=== PATIENT | male | born 1945 | race Caucasian/White ===

== ENCOUNTER → 2016-11-02 | Outpatient (CLI) | payer OTHER, BC | LOC: FIMAGING 12:43 | PROVIDERS: ATTEND Internal Medicine Pulmonary Disease | DX: J98.6 Disorders of diaphragm (principal); J45.909 Unspecified asthma, uncomplicated; J15.9 Unspecified bacterial pneumonia; I25.10 Atherosclerotic heart disease of native coronary artery without angina pectoris ==

== ENCOUNTER → 2018-01-14 | Outpatient (CLI) | payer OTHER, BC | LOC: FIMAGING 12:59 | PROVIDERS: ATTEND Family Medicine | DX: M25.552 Pain in left hip (principal); M16.0 Bilateral primary osteoarthritis of hip ==

== ENCOUNTER → 2018-02-28 | Outpatient (CLI) | payer OTHER, BC | LOC: FIMAGING 19:06 | PROVIDERS: ATTEND Family Medicine | DX: M16.0 Bilateral primary osteoarthritis of hip (principal); M25.852 Other specified joint disorders, left hip; M24.152 Other articular cartilage disorders, left hip; M76.891 Other specified enthesopathies of right lower limb, excluding foot; M76.892 Other specified enthesopathies of left lower limb, excluding foot ==

== ENCOUNTER 2018-06-04 05:17 | Inpatient (IN) | payer OTHER, BC ==
[2018-06-04] MEDS ORDERED: TRANEXAMIC ACID 1,000 MG in NS 100 ML IV ONE (06:00)
[2018-06-04] MEDS ORDERED: TRANEXAMIC ACID 3,000 MG in NS (SYRINGE) 50 ML IRR ONE (06:00)
[2018-06-04] MEDS ORDERED: ROPIVACAINE 0.2% 80 MG, EPINEPHrine 0.2 MG, KETOROLAC TROMETHAMINE 30 MG in SYRINGE 0 ML IU ONE (06:00)
[2018-06-04] MEDS ORDERED: POVIDONE-IODINE 20 ML in SODIUM CL IRRIG SOLUTION 500 ML IRR ONE (06:00)
[2018-06-04] MEDS ORDERED: DEXAMETHASONE 4 MG/ML VIAL IVP ONE (06:05)
[2018-06-04] MEDS ORDERED: GABAPENTIN 300 MG CAP PO ONE (06:05)
[2018-06-04] MEDS ORDERED: ACETAMINOPHEN 325 MG TAB PO ONE (06:05)
[2018-06-04] MEDS ORDERED: FAMOTIDINE 20 MG TAB PO ONE (06:05)
[2018-06-04] MEDS ORDERED: LR 1,000 ML IV ONE (06:05)
[2018-06-04] MEDS ORDERED: LIDOCAINE 1% 2 ML INJ ID PRN (06:05)
[2018-06-04] MEDS ORDERED: ceFAZolin 2 GM/DEXTROSE 100 ML IV ONE (06:05)
[2018-06-04] MEDS ORDERED: ONDANSETRON 4 MG/2 ML VIAL IVP ONE (06:05)
[2018-06-04] MEDS ORDERED: ceFAZolin 1 GM/5 ML SYR ONE (06:38)
[2018-06-04] MEDS ORDERED: TRANEXAMIC ACID 3,000 MG/50 ML BAG IRR ONE (06:38)
[2018-06-04] MEDS ORDERED: MIDAZOLAM 2 MG/2 ML VIAL ONE ×2 (06:56→07:04)
--- NOTE | 2018-06-04 07:03 | PDHPUP ---
History & Physical Update H&P update statement: This history and physical update is based on an assessment of the patient which was completed after admission or registration (within 24 hours), but prior to the surgery/procedure. H&P update: H&P reviewed & patient examined
[2018-06-04] MEDS ORDERED: PROPOFOL/EMULSION 500 MG/50 ML BOTTLE IV ONE (07:04)
[2018-06-04] MEDS ORDERED: BUPIVACAINE/DEXTROSE 7.5MG/ML 2 ML SPINAL AMP SP ONE (07:04)
[2018-06-04] MEDS ORDERED: fentaNYL 250 MCG/5 ML INJ ONE (07:40)
[2018-06-04] MEDS ORDERED: ROCURONIUM 50 MG/5 ML VIAL ONE (07:48)
[2018-06-04] MEDS ORDERED: ONDANSETRON 4 MG/2 ML VIAL ONE (07:48)
[2018-06-04] MEDS ORDERED: SUGAMMADEX SODIUM 200 MG/2 ML VIAL IVP ONE (07:48)
[2018-06-04] MEDS ORDERED: LIDOCAINE 2% 5 ML SDV ONE (07:48)
[2018-06-04] MEDS ORDERED: DEXAMETHASONE 4 MG/ML VIAL ONE (07:48)
[2018-06-04] MEDS ORDERED: RANITIDINE 50 MG/2 ML VIAL ONE (07:48)
[2018-06-04] MEDS ORDERED: MIDAZOLAM 2 MG/2 ML VIAL IVP ONE (07:53)
--- NOTE | 2018-06-04 07:53 | PDANEPAE ---
ANE Past Medical History - Cardiovascular History Hx Hypertension: No Hx Arrhythmias: No Hx Chest Pain: No Hx Coronary Artery / Peripheral Vascular Disease: No Hx CHF / Valvular Disease: No Hx Palpitations: No - Pulmonary History Hx COPD: No Hx Asthma/Reactive Airway Disease: Yes Hx Recent Upper Respiratory Infection: No Hx Oxygen in Use at Home: No Hx Sleep Apnea: No Sleep Apnea Screening Result - Last Documented: Negative Pulmonary History Comment: asthma - Neurologic History Hx Cerebrovascular Accident: No Hx Seizures: No Hx Dementia: No - Endocrine History Hx Diabetes: No - Renal History Hx Renal Disorders: No - Liver History Hx Hepatic Disorders: No - Neurological & Psychiatric Hx Hx Neurological and Psychiatric Disorders: Yes Neurological / Psychiatric History Comment: anxiety - worse R/T anticipation of surgery - taking small dose of atavan daily to help - Cancer History Hx Cancer: No - Congenital Disorder History Hx Congenital Disorders: No - GI History Hx Gastrointestinal Disorders: Yes Gastrointestinal History Comment: GERD. irritable bowel - Other Health History Other Health History: wears glasses for reading. wears bilateral hearing aids. osteoarthritis left hip. bruises easily - Chronic Pain History Chronic Pain: Yes (left hip) - Surgical History Prior Surgeries: 3 neck surgeries - C4-6 fusion. lumbar surgery. rotator cuff , right. left hernia. right knee scope. varicocele repair. cholecystectomy ANE Review of Systems Review of Systems: - Exercise capacity METS (RN): 4 METS ANE Patient History - Allergies Allergies/Adverse Reactions: No Known Allergies Allergy (Verified 05/21/18 10:02) - Home Medications Home Medications: Amitriptyline HCl [Elavil 10 mg (*)] 10 mg PO HS 05/21/18 [Last Taken 06/03/18] Dexlansoprazole [Dexilant] 60 mg PO DAILY 05/21/18 [Last Taken 06/03/18] Fluticasone/Vilanterol [Breo Ellipta 100-25 Mcg INH] 1 each IH DAILY 05/21/18 [ Last Taken 06/04/18] Herbals/Supplements -Info Only 1 each PO DAILY 05/21/18 [Last Taken Unknown] Lovastatin 20 mg PO HS 05/21/18 [Last Taken 06/03/18] Psyllium Husk (with Sugar) [Metamucil Packet] 1 each PO DAILY 05/21/18 [Last Taken 06/01/18] - NPO status NPO Since - Liquids (Date): 06/04/18 NPO Since - Liquids (Time): 04:00 NPO Since - Solids (Date): 06/03/18 NPO Since - Solids (Time): 21:00 - Smoking Hx Smoking Status: Never smoked - Family Anes Hx Family Hx Anesthesia Complications: none ANE Labs/Vital Signs - Vital Signs Blood Pressure: 161/81 Height: 172.72 cm Weight: 74.843 kg ANE Physical Exam - Airway Neck exam: decreased ROM Mallampati Score: Class 2 Mouth exam: normal dental/mouth exam - Pulmonary Pulmonary: no respiratory distress, no rales or rhonchi, reduced air movement - Cardiovascular Cardiovascular: regular rate and rhythym, no murmur, rub, or gallop - ASA Status ASA Status: III ANE Anesthesia Plan Anesthesia Plan: spinal
[2018-06-04] MEDS ORDERED: ONDANSETRON 4 MG/2 ML VIAL IVP PRN ×2 (07:54→09:06)
[2018-06-04] MEDS ORDERED: DEXAMETHASONE 4 MG/ML VIAL IVP PRN (07:54)
[2018-06-04] MEDS ORDERED: LR 500 ML IV PRN (07:54)
[2018-06-04] MEDS ORDERED: NALOXONE HCL 0.4 MG/ML INJ IVP PRN (07:54)
[2018-06-04] MEDS ORDERED: DIAZEPAM 5 MG/ML 1 ML SYR IVP PRN (07:54)
[2018-06-04] MEDS ORDERED: ALBUTEROL 3 ML DEYVIAL IH PRN (07:54)
--- NOTE | 2018-06-04 08:17 | PDANEPAE ---
ECT Pre Anesthetic Evaluation Allergies/Adverse Reactions: No Known Allergies Allergy (Verified 05/21/18 10:02) Home Medications: Medication Instructions Recorded Amitriptyline HCl [Elavil 10 mg 10 mg PO HS 05/21/18 (*)] Dexlansoprazole [Dexilant] 60 mg PO DAILY 05/21/18 Fluticasone/Vilanterol [Breo 1 each IH DAILY 05/21/18 Ellipta 100-25 Mcg INH] Herbals/Supplements -Info Only 1 each PO DAILY 05/21/18 Lovastatin 20 mg PO HS 05/21/18 Psyllium Husk (with Sugar) 1 each PO DAILY 05/21/18 [Metamucil Packet] ECT Pre-Anesthetic History - Height & Weight Height: 172.72 cm Weight: 74.843 kg BMI: 25.09 - Anesthesia History Hx Anesthesia Complications (with details): nausea Family Hx Anesthesia Complications: none - Tobacco/Alcohol/Drug Use Smoking Status: Never smoked - Prior Surgeries/Hospitalizations Prior Surgeries: 3 neck surgeries - C4-6 fusion. lumbar surgery. rotator cuff , right. left hernia. right knee scope. varicocele repair. cholecystectomy - Pulmonary History Hx Oxygen in Use at Home: No - Cardiovascular History Hx Hypertension: No Hx Arrhythmias: No Hx Palpitations: No Hx Chest Pain: No Hx Coronary Artery / Peripheral Vascular Disease: No - Neurologic History Hx Cerebrovascular Accident: No - Endocrine History Hx Diabetes: No - Renal/Urologic History Hx Renal Disorders: No - Liver History Hx Hepatic Disorders: No - Cancer History Hx Cancer: No - Opthalmic History Visual Assistive Devices: Glasses
--- NOTE | 2018-06-04 08:34 | PDANEPAE ---
ANE Past Medical History - Cardiovascular History Hx Hypertension: No Hx Arrhythmias: No Hx Chest Pain: No Hx Coronary Artery / Peripheral Vascular Disease: No Hx CHF / Valvular Disease: No Hx Palpitations: No - Pulmonary History Hx COPD: No Hx Asthma/Reactive Airway Disease: Yes Hx Recent Upper Respiratory Infection: No Hx Oxygen in Use at Home: No Hx Sleep Apnea: No Sleep Apnea Screening Result - Last Documented: Negative Pulmonary History Comment: asthma - Neurologic History Hx Cerebrovascular Accident: No Hx Seizures: No Hx Dementia: No - Endocrine History Hx Diabetes: No - Renal History Hx Renal Disorders: No - Liver History Hx Hepatic Disorders: No - Neurological & Psychiatric Hx Hx Neurological and Psychiatric Disorders: Yes Neurological / Psychiatric History Comment: anxiety - worse R/T anticipation of surgery - taking small dose of atavan daily to help - Cancer History Hx Cancer: No - Congenital Disorder History Hx Congenital Disorders: No - GI History Hx Gastrointestinal Disorders: Yes Gastrointestinal History Comment: GERD. irritable bowel - Other Health History Other Health History: wears glasses for reading. wears bilateral hearing aids. osteoarthritis left hip. bruises easily - Chronic Pain History Chronic Pain: Yes (left hip) - Surgical History Prior Surgeries: 3 neck surgeries - C4-6 fusion. lumbar surgery. rotator cuff , right. left hernia. right knee scope. varicocele repair. cholecystectomy ANE Review of Systems Review of Systems: - Exercise capacity METS (RN): 4 METS ANE Patient History - Allergies Allergies/Adverse Reactions: No Known Allergies Allergy (Verified 05/21/18 10:02) - Home Medications Home Medications: Amitriptyline HCl [Elavil 10 mg (*)] 10 mg PO HS 05/21/18 [Last Taken 06/03/18] Dexlansoprazole [Dexilant] 60 mg PO DAILY 05/21/18 [Last Taken 06/03/18] Fluticasone/Vilanterol [Breo Ellipta 100-25 Mcg INH] 1 each IH DAILY 05/21/18 [ Last Taken 06/04/18] Herbals/Supplements -Info Only 1 each PO DAILY 05/21/18 [Last Taken Unknown] Lovastatin 20 mg PO HS 05/21/18 [Last Taken 06/03/18] Psyllium Husk (with Sugar) [Metamucil Packet] 1 each PO DAILY 05/21/18 [Last Taken 06/01/18] - NPO status NPO Since - Liquids (Date): 06/04/18 NPO Since - Liquids (Time): 04:00 NPO Since - Solids (Date): 06/03/18 NPO Since - Solids (Time): 21:00 - Smoking Hx Smoking Status: Never smoked - Family Anes Hx Family Hx Anesthesia Complications: none ANE Labs/Vital Signs - Vital Signs Blood Pressure: 161/81 Height: 172.72 cm Weight: 74.843 kg
--- NOTE | 2018-06-04 08:53 | POSTOPPROG ---
Post Op Note Date of Operation: 06/04/18 Surgeon: Pablo Eddy Corn Chip Maker: Geovany/Jewel Anesthesiologist: Dr. Lori Jefferson Anesthesia: GET(General Endotracheal) Post-op Diagnosis: Left hip severe degenerative arthritis Procedure: Left total hip arthroplasty Inf/Abcess present in the surg proc area at time of surgery?: No EBL: [id number]
[2018-06-04] MEDS ORDERED: MAGNESIUM HYDROXIDE 30 ML UDCUP PO PRN (09:06)
[2018-06-04] MEDS ORDERED: CYCLOBENZAPRINE 10 MG TAB PO PRN (09:06)
[2018-06-04] MEDS ORDERED: NS 500 ML IV PRN (09:06)
[2018-06-04] MEDS ORDERED: PROMETHAZINE HCL 25 MG/ML INJ IVP PRN (09:06)
[2018-06-04] MEDS ORDERED: traMADol 50 MG TAB PO PRN (09:06)
[2018-06-04] MEDS ORDERED: METOCLOPRAMIDE 10 MG/2 ML VIAL IVP PRN (09:06)
[2018-06-04] MEDS ORDERED: BISACODYL 10 MG SUPP PR PRN (09:06)
[2018-06-04] MEDS ORDERED: ONDANSETRON DISINTEGRATING 4 MG TAB PO PRN (09:06)
[2018-06-04] MEDS ORDERED: diphenhydrAMINE 25 MG CAP PO PRN (09:06)
[2018-06-04] MEDS ORDERED: LACTULOSE 20 GM/30 ML UDCUP PO PRN (09:06)
[2018-06-04] MEDS ORDERED: POLYETHYLENE GLYCOL 3350 17 GM PKT PO PRN (09:06)
[2018-06-04] MEDS ORDERED: TEMAZEPAM 15 MG CAP PO PRN (09:06)
[2018-06-04] MEDS ORDERED: DIPHENOXYLATE/ATROPINE LOMOTIL 1 TAB PO PRN (09:06)
[2018-06-04] MEDS ORDERED: PROMETHAZINE HCL 25 MG SUPPR PR PRN (09:06)
[2018-06-04] MEDS ORDERED: fentaNYL 100 MCG/2 ML INJ ONE (09:14)
[2018-06-04] MEDS: fentaNYL 100 MCG/2 ML INJ IVP PRN ×2 (09:17→09:34)
[2018-06-04] MEDS ORDERED: LR 1,000 ML IV SCH (09:30)
--- NOTE | 2018-06-04 09:54 | GOP ---
DATE OF OPERATION: 06/04/2018 SURGEON: Pablo Eddy MD CHARGEBACK ANALYST: Milton Armenta and Gen Holloway. ANESTHESIA: General anesthesia. ANESTHESIOLOGIST: Dr. Lori Jefferson. PREOPERATIVE DIAGNOSIS: Left hip severe degenerative arthritis. POSTOPERATIVE DIAGNOSIS: Left hip severe degenerative arthritis. PROCEDURE PERFORMED: June 04, 2018, a left total hip arthroplasty, ceramic femoral head on highly cross-linked polyethylene cup liner. FINDINGS: DESCRIPTION OF PROCEDURE: The patient was given 2 g of IV Ancef preoperatively within 60 minutes of surgery. He also received 1000 mg of IV tranexamic acid. He was placed on the operating room table, and Dr. Jefferson attempted a spinal anesthetic. The patient had previous lumbar spine surgery and the spinal was unsuccessful. He was placed supine and given general anesthesia. A Bhatia catheter was n ot used. He wore a DAVE stocking and SCD on the nonoperative leg. He was rolled to the right lateral decubitus position. The position was secured with the pegboard table attachment. An axillary roll was used, and all pressure points were carefully padded. I was careful to lock his pelvis in a verti shilpa position. His perineum was isolated with plastic adhesive drapes. His left hip and left lower e xtremity were prepped with ChloraPrep. They were draped free using sterile sheets, stockinette, and Ioban plastic adhesive drapes. The [employer] Organization time-out was performed to verify the correct surgical side and site and the correct patient identity. The [place] time-out was also performed. I made a 5-inch straight oblique posterolateral hip skin incision. The subcutaneous tissues were sha rply divided, and hemostasis was obtained using electrocautery. The fascia prosper was identified and s plit along the axis of its fibers. I curved posteriorly and proximally, and split the fascia of glut eus heaven and bluntly split the muscle fibers in line with their orientation. The Charnley self-re taining retractor was inserted. His sciatic nerve was located, partially exposed, and protected thro ughout the procedure. The external rotators and the posterior capsule were divided as separate layer s at the base of the femoral neck, tagged, and reflected posteriorly. A smooth 8-inch Steinmann pin was inserted vertically into the ilium, superior to the acetabulum. An 8-inch drill bit was inserted vertically into the greater trochanter and parallel to the first pin. The distance between the 2 wa s measured for leg length reference. He was 3 or 4 mm short preoperatively. His femoral head was di slocated posteriorly. Severe degenerative changes were present on the femoral head. The femoral nec k was osteotomized at the appropriate level and inclination. I was careful to preserve all the posterior capsule and most of the anterior capsule. The remnant of his damaged labrum was excised. I prepared the femur first. This allowed me to determine the amount of natural femoral neck antevers ion. This, in turn, allowed me to later determine the correct amount of cup anteversion. He had valeria roximately 15 degrees of natural femoral neck anteversion. The canal was opened laterally with a box chisel. I reamed sequentially up to a size 6 broach. The Accolade II high offset broach was used a s a trial stem. I was careful to lateralize adequately. Appropriate retractors were inserted to expose the acetabulum. The acetabulum was reamed sequentiall y up to 54 mm. I selected a 54 mm Dorota Tritanium Trident II cluster hole hemispherical shell. Th is was tapped securely into place in the proper degree of inclination anteversion. I used the transv erse acetabular ligament and other acetabular bone cross to help me properly orient the cup. I performed a series of trial reductions to determine length and stability. I concluded that the siz e 6 high offset stem with a -2.5 mm neck length, a 36 mm head with a 0 degree trial liner gave me the proper combination of appropriate length and good anterior and posterior stability. I took an intra operative cross-table AP pelvis x-ray. This demonstrated good sizing and position of the components. His leg lengths were accurate. The 0 degrees Dorota X3 highly cross-linked polyethylene liner was inserted and tapped securely into place. The Dorota Accolade II stem in a high offset in a size 6 was inserted Press-fit and was a v yamilex tight fit. I did 1 final trial reduction and confirmed that the -2.5 mm neck length with a 36 mm head was the proper combination. The [place] Biolox Delta ceramic head with an outside diameter of 36 mm neck length, a -2.5 mm was tapped securely onto the clean trunnion. The acetabulum was irrigat ed, cleaned, and the hip was reduced 1 final time. He had excellent anterior and posterior stability and appropriate lengthening. 40 mL of the joint anesthetic cocktail were injected into the capsule, the deep musculature, and the subcutaneous tissues around the skin edges. The joint was thoroughly irrigated 1 final time with a d ilute Betadine solution. 50 cc of tranexamic acid solution was irrigated into the joint. His sciati c nerve was reinspected and looked unharmed. The external rotators and the posterior hip capsule wer e repaired in separate layers with #2 FiberWire sutures through drill holes in the greater trochanter . The fascia prosper was closed first with 2 interrupted [id number] #2 FiberWire sutures followed by a running #2 barbed Ethicon Stratafix PDO suture. The subcutaneous tissues were closed with a run coral 0 barbed Ethicon Stratafix Monoderm suture. The skin was closed with a running 3-0 barbed Ethic on Stratafix Monoderm subcuticular suture. The skin edges were reapproximated and sealed with Dermab ond glue. The wound was covered with a large Mediplex waterproof dressing. The sacral Mepilex dress ing was applied. A long-leg DAVE stocking and SCD were applied to his left lower extremity. He wore a stocking and SCD on the opposite leg during the procedure and an abduction pillow was placed between his knees. He w as awakened from anesthesia and rolled to the supine position on his gurney. He was taken to PACU in satisfactory condition. There were no recognized intraoperative complications. The estimated blood loss was 400 mL. The sponge and needle count were correct on 2 occasions. I used a Dorota Tritanium Trident II hemispherical Press-fit cluster hole acetabular shell with an o utside diameter of 54 mm. The liner was a [place] X3 0-degree highly cross-linked liner with an insi de diameter of 36 mm. The femoral component was a high offset Accolade II stem in a size 6 and Press -fit. The femoral head was a [place]ota Biolox Delta ceramic head with a -2.5 mm neck length and a 36 m m outside diameter. Milton Armenta and Gen Holloway acted as surgical assistants. Their assistance was a medical necess ity for safe completion of the procedure. /[id number]/MODL
--- NOTE | 2018-06-04 10:13 | PDMN ---
Medical Necessity Medical necessity: [facility] [place] S560 Hip Arthroplasty, A-2 days: 72 yo sp L JESSE, [facility] IP only
[2018-06-04] MEDS: oxyCODONE IR 5 MG TAB PO PRN (10:31)
--- NOTE | 2018-06-04 10:36 | POSTANESTH ---
Post Anesthetic Evaluation Cardiovascular Status: Normal, Stable, Similar to Pre-Op Cond Respiratory Status: Normal, Stable, Similar to Pre-op Cond. Level of Consciousness/Mental Status: Mildly Sleepy, Arousable Pain Control: Adequate, Prn Tx Ordered Nausea/Vomiting Control: Adequate, Prn Tx Ordered Complications Possibly Related to Anesthesia: None Noted
[2018-06-04] MEDS: ACETAMINOPHEN 325 MG TAB PO SCH ×3 (12:20→23:42)
[2018-06-04] MEDS: KETOROLAC 15 MG/1 ML SDV IVP SCH ×3 (12:21→23:42)
[2018-06-04] MEDS: ceFAZolin 2 GM/DEXTROSE 100 ML IV SCH ×2 (16:24→23:42)
[2018-06-04] MEDS ORDERED: AMITRIPTYLINE HCL 10 MG TAB PO SCH (21:00)
[2018-06-04] MEDS ORDERED: PRAVASTATIN SODIUM 20 MG TAB PO SCH (21:00)
[2018-06-04] MEDS: SENNOSIDES/DOCUSATE SODIUM TAB PO SCH (21:11)
[2018-06-04] MEDS: FAMOTIDINE 20 MG TAB PO SCH (21:12)
[2018-06-04] MEDS: ASPIRIN 325 MG TAB PO SCH (21:14)
[2018-06-05] MEDS: KETOROLAC 15 MG/1 ML SDV IVP SCH (06:37)
[2018-06-05] MEDS: ACETAMINOPHEN 325 MG TAB PO SCH ×2 (06:38→11:41)
[2018-06-05] MEDS: SENNOSIDES/DOCUSATE SODIUM TAB PO SCH (07:41)
[2018-06-05] MEDS: oxyCODONE IR 5 MG TAB PO PRN (07:41)
[2018-06-05] MEDS: ASPIRIN 325 MG TAB PO SCH (07:41)
[2018-06-05] MEDS: FAMOTIDINE 20 MG TAB PO SCH (07:42)
[2018-06-05] MEDS ORDERED: PANTOPRAZOLE SODIUM 40 MG TAB PO SCH (09:00)
[2018-06-05] MEDS ORDERED: Fluticasone/Vilanterol [Breo Ellipta 100-25 Mcg Inh] 1 EACH IH SCH (09:00)
[2018-06-05] MEDS ORDERED: FERROUS SULFATE 140 MG TAB.ER PO SCH (09:00)
--- NOTE | 2018-06-05 10:01 | SOAPPROG ---
SOAP Progress Note Assessment/Plan: Assessment: Afebrile. Awake and alert. He has been up and walking in the room and walking in the fraser. He has already safely completed stair training. His dressing is dry. Sciatic nerve intact. Postop H&H are good. Postop films look good. Plan: Discharge today. He will go to outpatient physical therapy in [place]. 06/05/18 10:00 Objective: Vital Signs Temp Pulse Resp BP Pulse Ox 36.4 C 78 12 117/59 L 92 06/05/18 07:30 06/05/18 08:49 06/05/18 08:49 06/05/18 07:30 06/05/18 08:49 Laboratory Results 06/05/18 04:00 06/04/18 06/05/18 06/06/18 05:59 05:59 05:59 Intake Total 1900 Output Total 1275 Balance 625 ICD10 Worksheet Patient Problems: Problems Problem Status Onset Osteoarthritis of left hip Acute
--- NOTE | 2018-06-05 10:46 | ASMTLACE ---
JOSYE Length of stay for Answers: 2 days current admission Acuity / Level of Answers: Yes Care: Did the patient have an inpatient admission? Comorbidities - select Answers: Opioid dependence all that apply / Chronic pain # of Emergency department Answers: 0 visits in the last 6 months Social determinants Answers: Mental health diagnosis (anxiety, depression, pers onality disorders, etc.) Score: 12 Date Signed: 06/05/2018 10:46 AM Electronically Signed By:RADHA Lui
--- NOTE | 2018-06-05 10:48 | ASMTCMCOM ---
CM Note CM Note Notes: Pt had planned L total hip. Resides with spouse. Pt to go to outpatient PT per MD rec. PT rec [facility]/outpatient. No CM d/c needs identified. Date Signed: 06/05/2018 10:48 AM Electronically Signed By:RADHA Lui
--- NOTE | 2018-06-05 11:07 | GDS ---
ADMISSION DIAGNOSIS: Left hip severe degenerative arthritis. POSTOPERATIVE DIAGNOSIS: Left hip severe degenerative arthritis. OPERATION PERFORMED: 06/04/2018: A left total hip arthroplasty, ceramic femoral head on highly cros s-linked polyethylene cup liner. POSTOPERATIVE COMPLICATIONS: None. CONDITION ON DISCHARGE: Improved. DESCRIPTION OF HOSPITAL COURSE: The patient was admitted to the hospital on the morning of surgery. His preoperative CBC was normal. The same day under general anesthesia, he underwent a left total h ip arthroplasty. Postoperatively, he was treated with multimodal DVT prophylaxis, including aspirin. On the first postoperative day, his hemoglobin and hematocrit were 13.3 and 38.3. [facility] and made rapid progress with ambulation and stairs. By the time of discharge, he was afebrile, his wound was clean and dry, and he was independent walking with a walker. DISPOSITION: The patient discharged to his home. He will go to outpatient physical therapy in [facility] next week. He may progress to full weightbearing as tolerated. Use an abduction pillow in bed f or 3 weeks. DAVE stockings for 1 week. Continue aspirin 325 mg p.o. daily for 21 days. He has presc riptions for oxycodone, tramadol, and Celebrex for pain control. I will see him back in the office o n 06/14/2018. If there are any problems, he is to call me at the office. /[id number]/MODL
[2018-06-05 11:16] VITALS: BP 119/58
== END 2018-06-05 13:09 | disposition home or self-care (01) | DRG 470 ==
LOC: F3N 05:17
PROVIDERS: ADMIT Orthopaedic Surgery; ATTEND Orthopaedic Surgery
PROC: 0SRB04Z Replacement of Left Hip Joint with Ceramic on Polyethylene Synthetic Substitute, Open Approach (ICD-10-PCS; principal; 2018-06-04 07:15)
DX: M16.12 Unilateral primary osteoarthritis, left hip (principal); F41.9 Anxiety disorder, unspecified; J45.909 Unspecified asthma, uncomplicated; E78.00 Pure hypercholesterolemia, unspecified; K21.9 Gastro-esophageal reflux disease without esophagitis
CPT/HCPCS: 97116-GP; 97161-GP; 97165-GO; 97530-GP; G8978-GP-CJ; G8979-GP-CI; G8980-GP-CI; G8987-GO-CI; G8988-GO-CI; G8989-GO-CI; J0171; J0690; J1100; J1885; J2250; J2405; J2704; J2780; J2795; J3010